=== PATIENT | male | born 1970 | race Hispanic/Latino ===

== ENCOUNTER 2025-01-07 16:16 | Emergency (ER) | payer OTHER ==
[~2025-01-07] VITALS: Ht 172.7 cm; Wt 78.0 kg
[2025-01-07] MEDS ORDERED: LISINOPRIL5 MG PO (16:52)
[2025-01-07 18:44] VITALS: BP 116/85
== END 2025-01-07 18:44 | disposition left against medical advice (07) | DRG 951 ==
LOC: ED 16:16 → LWOBS 18:44
DX: Z53.21 Procedure and treatment not carried out due to patient leaving prior to being seen by health care provider (principal)

== ENCOUNTER 2025-01-15 17:57 | Emergency (ER) | payer OTHER ==
[~2025-01-15] VITALS: Ht 172.7 cm; Wt 99.7 kg
[~2025-01-15 17:57] MED LIST: LISINOPRIL5 MG PO
[2025-01-15 18:05] VITALS: BP 124/71
[2025-01-15 18:16] VITALS: BP 114/78
[2025-01-15] MEDS ORDERED: KETOROLAC TROMETHAMINE 30 MG/ML SDV IM ONE (18:20)
[2025-01-15 18:46] VITALS: BP 120/81
[2025-01-15] MEDS ORDERED: EC-NAPROXEN500 MG PO (18:53)
[2025-01-15] MEDS ORDERED: FLEXERIL5 M1 PO (18:53)
[2025-01-15 18:57] VITALS: BP 114/78
== END 2025-01-15 19:04 | disposition home or self-care (01) | DRG 556 ==
LOC: ED 17:57
DX: M25.551 Pain in right hip (principal); I10 Essential (primary) hypertension